=== PATIENT | female | born 1970 | race Caucasian/White ===

== ENCOUNTER 2018-01-21 20:19 | Emergency (ER) | payer BC ==
--- NOTE | 2018-01-21 20:38 | EKG REPORT ---
SEVERITY:- NORMAL ECG - SINUS RHYTHM : Confirmed by: Cassidy Mills MD 21-Jan-2018 20:37:21
[2018-01-21] MEDS ORDERED: ASPIRIN 81 MG TABLET, CHEWABLE PO ONE (20:59)
[2018-01-21 21:39] LABS: ABSOLUTE EOSINOPHILS # (AUTO) 0.1 10^3/uL (0.0-0.6); ABSOLUTE LYMPHOCYTES (AUTO) 1.9 10^3/uL (0.5-4.7); ABSOLUTE MONOCYTES (AUTO) 0.6 10^3/uL (0.1-1.4); BASOPHILS % (AUTO) 0.3 % (0-2); EOSINOPHILS % (AUTO) 1.8 % (0-6); HEMATOCRIT 37.3 % (36.0-47.0); HEMOGLOBIN 12.3 g/dL (12.0-15.5); LYMPHOCYTES % (AUTO) 24.3 % (13-45); MEAN CORPUSCULAR HEMOGLOBIN 27.7 pg (27.0-33.4); MEAN CORPUSCULAR VOLUME 84 fl (80-97); MONOCYTES % (AUTO) 8.4 % (3-13); PLATELET COUNT 256 10^3/uL (150-450); RED BLOOD COUNT 4.44 10^6/uL (3.72-5.28); RED CELL DISTRIBUTION WIDTH 16.2 % (11.5-14.0); SEGMENTED NEUTROPHILS % (AUTO) 65.2 % (42-78); TOTAL CELLS COUNTED % (AUTO) 100 %; WHITE BLOOD COUNT 7.7 10^3/uL (4.0-10.5)
[2018-01-21 21:56] LABS: ALANINE AMINOTRANSFERASE 21 U/L (9-52); ALBUMIN 4.6 g/dL (3.5-5.0); ALKALINE PHOSPHATASE 98 U/L (38-126); ANION GAP 15 (5-19); ASPARTATE AMINO TRANSFERASE 21 U/L (14-36); BILIRUBIN,DIRECT 0.2 mg/dL (0.0-0.4); BILIRUBIN,TOTAL 0.2 mg/dL (0.2-1.3); BLOOD UREA NITROGEN 12 mg/dL (7-20); CALCIUM 9.3 mg/dL (8.4-10.2); CARBON DIOXIDE 22 mmol/L (22-30); CHLORIDE 108 mmol/L (98-107); CREATINE KINASE 111 U/L (30-135); GLUCOSE 84 mg/dL (75-110); POTASSIUM 3.8 mmol/L (3.6-5.0); SODIUM 144.7 mmol/L (137-145); TOTAL PROTEIN 7.8 g/dL (6.3-8.2)
--- NOTE | 2018-01-21 22:06 | RADIOLOGY REPORT (SQ) ---
EXAM DESCRIPTION: CHEST SINGLE VIEW COMPLETED DATE/TIME: 01/21/2018 9:51 pm REASON FOR STUDY: cp COMPARISON: None. EXAM PARAMETERS: NUMBER OF VIEWS: One view. TECHNIQUE: Single frontal radiographic view of the chest acquired. RADIATION DOSE: NA LIMITATIONS: None. FINDINGS: LUNGS AND PLEURA: No opacities, masses or pneumothorax. No pleural effusion. MEDIASTINUM AND HILAR STRUCTURES: Small hiatal hernia. HEART AND VASCULAR STRUCTURES: Heart normal in size. Normal vasculature. BONES: No acute findings. HARDWARE: None in the chest. OTHER: No other significant finding. IMPRESSION: Small hiatal hernia. No acute cardiopulmonary disease. TECHNICAL DOCUMENTATION: JOB ID: [id number] [employer]- All Rights Reserved Reading location - IP/workstation name: [email or web address]
[2018-01-21 22:07] LABS: CREATINE KINASE MB 0.81 ng/mL (<4.55)
[2018-01-21 22:08] LABS: TROPONIN I < 0.012 ng/mL
--- NOTE | 2018-01-21 22:23 | ER Document Report ---
ED Medical Screen (RME) - General Chief Complaint: Chest Pain Stated Complaint: CHEST PAIN Time Seen by Provider: 01/21/18 22:20 Mode of Arrival: Ambulatory Information source: Patient Notes: 47-year-old female presents to ED for complaint of chest pain since 5 PM today. She states that the chest pain eased off a little bit and then at 7:00 she started again with some sharp stabbing chest pain cold sweats shortness of breath. She states she had been to her primary care doctor in the past and they sent her to a diving board assembler and she was supposed to have a stress test done on Thursday but since she was [place] the [place] she decided to delay it and stay at the beach a little longer. She states the pain started again real bad tonight and she became concerned and came to the emergency room to get checked out. Friends with her state that she had cold sweats and was shaking when the pain was at its worse. Patient is alert and oriented no shortness of breath or distress noted at this time. She is not diaphoretic. Cardiac enzymes are negative there were done earlier. X-ray chest are clear but has a small hiatal hernia. I have greeted and performed a rapid initial assessment of this patient. A comprehensive ED assessment and evaluation of the patient, analysis of test results and completion of medical decision making process will be conducted by an additional ED providers. TRAVEL OUTSIDE OF THE [place] IN LAST 30 DAYS: No Physical Exam - Vital signs Vitals: Temp Pulse Resp BP Pulse Ox 98.4 F 61 17 132/89 H 100 01/21/18 20:30 01/21/18 20:30 01/21/18 20:30 01/21/18 20:30 01/21/18 20:30 Course - Vital Signs Vital signs: Temp Pulse Resp BP Pulse Ox 98.4 F 61 17 132/89 H 100 01/21/18 20:30 01/21/18 20:30 01/21/18 20:30 01/21/18 20:30 01/21/18 20:30 - Laboratory Result Diagrams: 01/21/18 21:22 01/21/18 21:22 Laboratory results interpreted by me: 01/21/18 01/21/18 21:22 21:22 RDW 16.2 H Chloride 108 H
--- NOTE | 2018-01-21 23:56 | ER Document Report ---
ED General - General Chief Complaint: Chest Pain Stated Complaint: CHEST PAIN Time Seen by Provider: 01/21/18 22:20 Mode of Arrival: Ambulatory Notes: Patient is a 47-year-old female presents with complaint of chest pain. Patient says she has been having some shortness of breath and intermittent chest pain and also some fainting type spells for a few weeks now. This week chest pain is gone little more frequent. She was scheduled for a stress test by bridge teacher that she was referred to. He was supposed to happen this week however she came down on vacation and was having fun therefore postponed her stress test. Today she is having a few episodes of quick sharp chest pain with some shortness of breath. She therefore came to the ER. She is not a smoker. She does not have a history of hypertension, diabetes, or high cholesterol. She denies any family history of heart disease. She denies doing any drugs. She does have a history of hiatal hernia and acid reflux. She says it feels different from her acid reflux. She has never been diagnosed with esophageal spasms. She does have history anxiety and panic attacks. She is on medications for this. She said this feels a little different from her panic attacks and that the pain was sharp. She currently is astigmatic and has no other complaints at this time. She denies any leg pain or leg swelling. She is not on control. TRAVEL OUTSIDE OF THE [place] IN LAST 30 DAYS: No Past Medical History - General Information source: Patient - Social History Smoking Status: Never Smoker Chew tobacco use (# tins/day): No Frequency of alcohol use: Occasional Drug Abuse: None Family History: Reviewed & Not Pertinent Patient has suicidal ideation: No Patient has homicidal ideation: No Renal/ Medical History: Denies: Hx Peritoneal Dialysis Review of Systems - Review of Systems Notes: My Normal Review Basic REVIEW OF SYSTEMS: CONSTITUTIONAL : Denies fever, chills, or sweats. Denies recent illness. EENT: Denies eye, ear, throat, or mouth pain or symptoms. Denies nasal or sinus congestion. CARDIOVASCULAR: had some chest pain. RESPIRATORY: felt short of breath GASTROINTESTINAL: Denies abdominal pain. Denies nausea, vomiting, or diarrhea. Denies constipation. Last BM: GENITOURINARY: Denies difficulty urinating, painful urination, burning, frequency, or blood in urine. FEMALE GENITOURINARY: Denies vaginal bleeding, abnormal or irregular periods. LMP: MUSCULOSKELETAL: Denies neck or back pain or joint pain or swelling. SKIN: Denies rash or skin lesions. HEMATOLOGIC : Denies easy bruising or bleeding. LYMPHATIC: Denies swollen, enlarged glands. NEUROLOGICAL: Denies altered mental status or loss of consciousness. Denies headache. Denies weakness or paralysis or loss of use of either side. Denies problems with gait or speech. Denies sensory or motor loss. PSYCHIATRIC: Denies anxiety or stress or depression. ALL OTHER SYSTEMS REVIEWED AND NEGATIVE. Physical Exam - Vital signs Vitals: Temp Pulse Resp BP Pulse Ox 98.4 F 61 17 132/89 H 100 01/21/18 20:30 01/21/18 20:30 01/21/18 20:30 01/21/18 20:30 01/21/18 20:30 - Notes Notes: General Appearance: Well nourished, alert, cooperative, no acute distress, no obvious discomfort. Appearing. Vitals: reviewed, See vital signs table. Head: no swelling or tenderness to the head Eyes: PERRL, EOMI, Conjuctiva clear Mouth: No decreasd moisture Chest Wall: No reproducible pain palpation of chest wall. Lungs: No wheezing, No rales, No rhonci, No accessory muscle use, good air exchange bilaterally. Heart: Normal rate, Regular rythm, No murmur, no rub Abdomen: Normal BS, soft, No rigidity, No abdominal tenderness, No guarding, no rebound, no abdominal masses, no organomegaly Extremities: strength 5/5 in all extremities, good pulses in all extremities, no swelling or tenderness in the extremities, no edema. Skin: warm, dry, appropriate color, no rash Neuro: speech clear, oriented x 3, normal affect, responds appropriately to questions. Course - Re-evaluation Re-evalutation: 01/22/18 02:30 Patient's chest pain is been resolved. She looks well. She has no distress. Her EKG and repeat EKG are negative. Her troponin and delta troponin are both negative. She has a heart score of 2. She has no coronary artery risk factors. She has no significant family history. I talked to patient about observation admission versus discharge. I did review the heart score with her and what it meant as far as her risk of cardiac event in the next 6 weeks. She is understanding of this. Patient says she does not want stay as observation admission and first to be discharged and follow-up closely with her bridge teacher. She says that she rescheduled her stress test for this coming week. I strongly encouraged her return to ER immediately if she has recurrent worsening chest pain, difficulty breathing, or she feels unwell. Patient agrees with plan will be discharged home. Dictation of this chart was performed using voice recognition software; therefore, there may be some unintended grammatical errors. - Vital Signs Vital signs: Temp Pulse Resp BP Pulse Ox 98.4 F 61 21 H 117/79 100 01/21/18 20:30 01/21/18 20:30 01/22/18 01:02 01/22/18 01:02 01/22/18 01:02 - Laboratory Result Diagrams: 01/21/18 21:22 01/21/18 21:22 Laboratory results interpreted by me: 01/21/18 01/21/18 21:22 21:22 RDW 16.2 H Chloride 108 H - EKG Interpretation by Me Additional EKG results interpreted by me: 01/21/18 23:55 EKG is reviewed and interpreted by me. EKG shows sinus rhythm with rate of [address] segment elevation or depression. No ischemic T-wave inversions. ID interval, QRS duration, QTc intervals are within normal range. No old EKG available for comparison. 01/22/18 01:33 EKG #2 is reviewed and interpreted by me. EKG shows sinus rhythm with rate [address] segment elevation or depression. No ischemic T-wave inversions. ID interval, QRS duration, QTc intervals are within normal range. Discharge - Discharge Clinical Impression: Chest pain Qualifiers: Chest pain type: unspecified Qualified Code(s): R07.9 - Chest pain, unspecified Condition: Good Disposition: HOME, SELF-CARE Additional Instructions: Your workup today was negative. As discussed with you you are at low risk for a significant cardiac event within the next 6 weeks based on your HEART score. He decided to go home and follow up with her doctor which I think is safe to do ; however, he should still have a very low threshold to return to ER immediately if you have recurrent worsening chest pain, difficulty breathing, or if you feel that you are worsening in any way. Please take aspirin 81 mg daily. Please continue your other medications as prescribed.
[2018-01-22 02:31] VITALS: BP 110/79
--- NOTE | 2018-01-22 19:39 | EKG REPORT ---
SEVERITY:- NORMAL ECG - SINUS RHYTHM : Confirmed by: Cassidy Mills MD 22-Jan-2018 19:38:22
== END 2018-01-22 02:30 | disposition home or self-care (01) ==
LOC: ER 20:19
DX: R07.9 Chest pain, unspecified (principal); R06.02 Shortness of breath; I10 Essential (primary) hypertension; E11.9 Type 2 diabetes mellitus without complications; E78.00 Pure hypercholesterolemia, unspecified
CPT/HCPCS: 36415; 71045; 80053; 82550; 82553; 84484; 85025; 93005; 93010; 99285